=== PATIENT | male | born 1980 | race Two or more races ===

== ENCOUNTER 2016-11-24 07:38 | Inpatient (IN) | payer SELFPAY ==
[~2016-11-24] VITALS: Ht 170.2 cm; Wt 65.1 kg
[2016-11-24] MEDS ORDERED: LORazepam 2 MG/ML, 1ML ONE ×4 (08:21→13:31)
[2016-11-24] MEDS ORDERED: LORazepam 2 MG/ML, 1ML IVPush ONE ×4 (08:30→13:30)
[2016-11-24 08:44] LABS: BLOOD UREA NITROGEN 9 mg/dL (7-18)
[2016-11-24] MEDS ORDERED: POTASSIUM CHLORIDE 20 MEQ TAB.ER.PRT PO ONE (09:30)
[2016-11-24] MEDS ORDERED: POTASSIUM CHLORIDE 20 MEQ TAB.ER.PRT ONE (09:31)
[2016-11-24] MEDS ORDERED: POTASSIUM CHLORIDE 20 MEQ, MAGNESIUM SULFATE 1 GM, THIAMINE 100 MG, FOLIC ACID 1 MG, MV... IV ONE ×2 (11:00→11:30)
[2016-11-24] MEDS ORDERED: LORazepam 10 MG in SODIUM CHLORIDE 0.9% 245 ML IV PRN (13:12)
[2016-11-24] MEDS ORDERED: ONDANSETRON 2MG/ML, 2ML IVPush PRN (14:30)
[2016-11-24] MEDS ORDERED: ACETAMINOPHEN 325 MG TABLET PO PRN (14:30)
[2016-11-24] MEDS ORDERED: DOCUSATE 100 MG CAPSULE PO PRN (14:30)
[2016-11-24] MEDS ORDERED: POLYETHYLENE GLYCOL 17 GM PACKET PO PRN (14:30)
[2016-11-24] MEDS ORDERED: LABETALOL 5MG/ML, 20ML IVPush PRN (14:30)
[2016-11-24] MEDS ORDERED: BISACODYL 10 MG SUPP PR PRN ×2 (14:30→16:30)
[2016-11-24] MEDS ORDERED: LORazepam 10 MG in DEXTROSE 5% 245 ML IV PRN (14:30)
[2016-11-24 15:12] LABS: IS PT STATUS REG ER OR PRE ER? NO
[2016-11-24] MEDS ORDERED: SODIUM PHOSPHATE 20 MMOL in SODIUM CHLORIDE 0.9% 500 ML IV ONE (15:30)
[2016-11-24] MEDS ORDERED: DIAZEPAM 5 MG/ML, 2ML IV SCH (15:30)
[2016-11-24] MEDS ORDERED: THIAMINE 200 MG in SODIUM CHLORIDE 0.9% 50 ML IV ONE (15:30)
[2016-11-24] MEDS ORDERED: MIDAZOLAM 1 MG/ML, 5ML ONE (15:40)
[2016-11-24] MEDS ORDERED: SUCCINYLCHOLINE 20 MG/ML, 10ML ONE (15:40)
[2016-11-24] MEDS ORDERED: VECURONIUM 10 MG ONE (15:40)
[2016-11-24] MEDS ORDERED: LACTULOSE 20 GM/30 ML UDC PO SCH (16:00)
[2016-11-24] MEDS ORDERED: ENOXAPARIN 40 MG/0.4 ML SQ SCH (16:00)
[2016-11-24] MEDS ORDERED: SENNA/DOCUSATE TABLET NG PRN (16:30)
[2016-11-24] MEDS ORDERED: SENNOSIDES 8.8 MG/5 ML ORAL SOL NG PRN (16:30)
[2016-11-24] MEDS ORDERED: PHARMACY MAY ADJ FOR RENAL FX MC SCH (16:30)
[2016-11-24] MEDS ORDERED: LIDOCAINE-MPF 1%, 2ML ENDO PRN (16:30)
[2016-11-24] MEDS ORDERED: LACTULOSE 20 GM/30 ML UDC NG PRN (16:30)
[2016-11-24] MEDS ORDERED: SODIUM CHLORIDE 0.9% IV PRN (16:30)
[2016-11-24] MEDS ORDERED: LORAZEPAM IV PRN (16:30)
[2016-11-24] MEDS: NS + 20MEQ KCL 1,000 ML IV SCH ×2 (16:56→23:29)
[2016-11-24] MEDS ORDERED: POTASSIUM PHOS 4.4 MEQ/ML IV ONE (17:00)
[2016-11-24] MEDS ORDERED: POTASSIUM PHOSPHATE 44 MEQ in SODIUM CHLORIDE 0.9% 500 ML IV ONE (17:00)
[2016-11-24] MEDS: ENOXAPARIN 40 MG/0.4 ML SQ SCH (17:06)
[2016-11-24] MEDS: CHLORDIAZEPOXIDE 25 MG CAPSULE PO SCH ×2 (17:06→19:45)
[2016-11-24] MEDS: FAMOTIDINE 20 MG/2 ML IV SCH (17:06)
[2016-11-24 17:08] LABS: ABG COLLECTION SITE RIGHT RADIAL; COLLATERAL CIRCULATION TESTING NORMAL
[2016-11-24] MEDS: DIAZEPAM 5 MG/ML, 10ML VIAL IV SCH ×2 (17:09→19:07)
[2016-11-24] MEDS: DEXAMETHASONE 4 MG/ML, 1ML IVPush SCH ×2 (17:11→23:29)
[2016-11-24 17:24] LABS: ASPARTATE AMINO TRANSFERASE 169 U/L (15-37); BLOOD UREA NITROGEN 6 mg/dL (7-18)
[2016-11-24] MEDS: FENTANYL PF 100 MCG/2ML IVPush PRN ×4 (18:05→22:58)
[2016-11-24] MEDS: ALBUTEROL/IPRATROPIUM 2.5MG/0.5MG, 3 ML INLINE SCH ×2 (18:25→22:32)
[2016-11-24 19:36] LABS: DAU SCREEN DISCLAIMER
[2016-11-24] MEDS: QUETIAPINE 25MG TABLET PO SCH (19:44)
[2016-11-24] MEDS: DIAZEPAM 5 MG/ML, 10ML VIAL IV PRN ×2 (20:11→21:39)
[2016-11-24] MEDS: LORazepam 20 MG in SODIUM CHLORIDE 0.9% 240 ML IV PRN (22:58)
[2016-11-25] MEDS ORDERED: POTASSIUM PHOSPHATE 44 MEQ in SODIUM CHLORIDE 0.9% 500 ML IV ONE
[2016-11-25] MEDS ORDERED: VECURONIUM 10 MG IVPush ONE
[2016-11-25] MEDS: FENTANYL PF 100 MCG/2ML IVPush PRN ×11 (01:31→21:40)
[2016-11-25] MEDS: DIAZEPAM 5 MG/ML, 10ML VIAL IV SCH ×6 (01:31→21:03)
[2016-11-25] MEDS: ALBUTEROL/IPRATROPIUM 2.5MG/0.5MG, 3 ML INLINE SCH ×4 (02:32→14:00)
[2016-11-25] MEDS: LORazepam 20 MG in SODIUM CHLORIDE 0.9% 240 ML IV PRN ×4 (02:47→16:19)
[2016-11-25] MEDS ORDERED: OMNIPAQUE 350 MG/ML, 50 ML BOTTLE ONE (03:35)
[2016-11-25] MEDS: DIAZEPAM 5 MG/ML, 10ML VIAL IV PRN ×2 (03:43→05:45)
[2016-11-25] MEDS: QUETIAPINE 25MG TABLET PO SCH ×3 (03:45→21:04)
[2016-11-25] MEDS ORDERED: VECURONIUM 10 MG IVPush PRN (04:30)
[2016-11-25 04:35] LABS: ABG COLLECTION SITE RIGHT RADIAL; COLLATERAL CIRCULATION TESTING NORMAL
[2016-11-25 04:56] LABS: ASPARTATE AMINO TRANSFERASE 155 U/L (15-37); BLOOD UREA NITROGEN 3 mg/dL (7-18)
[2016-11-25] MEDS: FAMOTIDINE 20 MG/2 ML IV SCH ×2 (05:12→16:19)
[2016-11-25] MEDS: DEXAMETHASONE 4 MG/ML, 1ML IVPush SCH ×4 (05:13→22:34)
[2016-11-25] MEDS: NS + 20MEQ KCL 1,000 ML IV SCH ×2 (05:49→22:21)
[2016-11-25] MEDS ORDERED: POTASSIUM CHLORIDE 10% 40 MEQ/30 ML UDC PO ONE (07:00)
[2016-11-25] MEDS: CHLORDIAZEPOXIDE 25 MG CAPSULE PO SCH ×3 (08:22→21:03)
[2016-11-25] MEDS ORDERED: POTASSIUM CHLORIDE 20 MEQ, MAGNESIUM SULFATE 2 GM, THIAMINE 100 MG, MVI ADULT 10 ML, FO... IV SCH (10:00)
[2016-11-25] MEDS: POTASSIUM CHLORIDE 20 MEQ, MAGNESIUM SULFATE 2 GM, THIAMINE 100 MG, MVI ADULT 10 ML, FO... IV SCH (14:48)
[2016-11-25] MEDS: ENOXAPARIN 40 MG/0.4 ML SQ SCH (16:19)
[2016-11-25] MEDS ORDERED: ALBUTEROL/IPRATROPIUM 2.5MG/0.5MG, 3 ML INLINE PRN ×2 (16:30→20:00)
[2016-11-26] MEDS: LORazepam 20 MG in SODIUM CHLORIDE 0.9% 240 ML IV PRN (00:44)
[2016-11-26] MEDS: DIAZEPAM 5 MG/ML, 10ML VIAL IV SCH ×2 (01:11→04:34)
[2016-11-26] MEDS: FENTANYL PF 100 MCG/2ML IVPush PRN ×2 (02:49→23:20)
[2016-11-26 04:00] VITALS: BP 143/76
[2016-11-26] MEDS: FAMOTIDINE 20 MG/2 ML IV SCH (04:30)
[2016-11-26] MEDS: QUETIAPINE 25MG TABLET PO SCH ×3 (04:30→18:40)
[2016-11-26 04:34] LABS: ABG COLLECTION SITE RIGHT RADIAL; COLLATERAL CIRCULATION TESTING NORMAL
[2016-11-26] MEDS: DEXAMETHASONE 4 MG/ML, 1ML IVPush SCH (04:36)
[2016-11-26 04:43] LABS: BLOOD UREA NITROGEN 2 mg/dL (7-18)
[2016-11-26] MEDS: NS + 20MEQ KCL 1,000 ML IV SCH ×4 (04:58→22:40)
[2016-11-26] MEDS: CHLORDIAZEPOXIDE 25 MG CAPSULE PO SCH ×3 (08:58→20:34)
[2016-11-26] MEDS ORDERED: DIAZEPAM 5 MG/ML, 10ML VIAL IV SCH ×2 (11:00)
[2016-11-26] MEDS ORDERED: ALBUTEROL/IPRATROPIUM 2.5MG/0.5MG, 3 ML NPPB PRN (11:00)
[2016-11-26] MEDS: POTASSIUM CHLORIDE 20 MEQ, MAGNESIUM SULFATE 2 GM, THIAMINE 100 MG, MVI ADULT 10 ML, FO... IV SCH (12:17)
[2016-11-26] MEDS: DIAZEPAM 5 MG/ML, 10ML VIAL IV PRN ×2 (13:35→19:41)
[2016-11-26] MEDS: ENOXAPARIN 40 MG/0.4 ML SQ SCH (17:07)
[2016-11-26] MEDS ORDERED: BISACODYL 10 MG SUPP PR PRN ×2 (19:30)
[2016-11-26] MEDS ORDERED: ACETAMINOPHEN 325 MG TABLET PO PRN (19:30)
[2016-11-26] MEDS ORDERED: DOCUSATE 100 MG CAPSULE PO PRN (19:30)
[2016-11-26] MEDS: FAMOTIDINE 20 MG TABLET PO SCH (21:14)
[2016-11-27] MEDS: DIAZEPAM 5 MG/ML, 10ML VIAL IV PRN ×2 (03:37→15:00)
[2016-11-27] MEDS: QUETIAPINE 25MG TABLET PO SCH ×3 (03:37→19:42)
[2016-11-27 04:00] VITALS: BP 127/93
[2016-11-27] MEDS: NS + 20MEQ KCL 1,000 ML IV SCH (04:04)
[2016-11-27 04:40] LABS: ABG COLLECTION SITE LEFT RADIAL; COLLATERAL CIRCULATION TESTING NORMAL; FIO2 ROOM AIR %
[2016-11-27 04:55] LABS: BLOOD UREA NITROGEN 2 mg/dL (7-18)
[2016-11-27] MEDS: FENTANYL PF 100 MCG/2ML IVPush PRN ×2 (05:23→06:43)
[2016-11-27] MEDS: FAMOTIDINE 20 MG TABLET PO SCH ×2 (08:39→21:13)
[2016-11-27] MEDS: CHLORDIAZEPOXIDE 25 MG CAPSULE PO SCH ×3 (08:39→21:13)
[2016-11-27 14:37] VITALS: BP 119/79
[2016-11-27] MEDS: POTASSIUM CHLORIDE 20 MEQ, MAGNESIUM SULFATE 2 GM, THIAMINE 100 MG, MVI ADULT 10 ML, FO... IV SCH (16:19)
[2016-11-27] MEDS: ENOXAPARIN 40 MG/0.4 ML SQ SCH (16:19)
[2016-11-27 20:31] VITALS: BP 114/72
[2016-11-28 00:30] VITALS: BP 118/74
[2016-11-28] MEDS: QUETIAPINE 25MG TABLET PO SCH ×3 (03:30→19:56)
[2016-11-28 06:29] LABS: BLOOD UREA NITROGEN 4 mg/dL (7-18)
[2016-11-28 06:30] LABS: ASPARTATE AMINO TRANSFERASE 92 U/L (15-37)
[2016-11-28 08:00] VITALS: BP 108/70
[2016-11-28] MEDS: CHLORDIAZEPOXIDE 25 MG CAPSULE PO SCH ×3 (11:00→17:00)
[2016-11-28] MEDS: FAMOTIDINE 20 MG TABLET PO SCH ×2 (11:08→19:57)
[2016-11-28 12:29] VITALS: BP 92/54
[2016-11-28 13:59] VITALS: BP 120/93
[2016-11-28] MEDS: ENOXAPARIN 40 MG/0.4 ML SQ SCH (16:30)
[2016-11-28] MEDS: POTASSIUM CHLORIDE 20 MEQ, MAGNESIUM SULFATE 2 GM, THIAMINE 100 MG, MVI ADULT 10 ML, FO... IV SCH (18:06)
[2016-11-28] MEDS ORDERED: LORazepam 2 MG/ML, 1ML IV PRN ×5 (18:30)
[2016-11-28 19:28] VITALS: BP 112/67
[2016-11-28] MEDS ORDERED: CHLORDIAZEPOXIDE 25 MG CAPSULE PO SCH (21:00)
[2016-11-29 01:07] VITALS: BP 120/74
[2016-11-29] MEDS: QUETIAPINE 25MG TABLET PO SCH ×3 (03:36→20:17)
[2016-11-29 05:03] LABS: BLOOD UREA NITROGEN 7 mg/dL (7-18)
[2016-11-29 05:52] LABS: DIFF TOTAL CELLS COUNTED 100 CELL DIFF
[2016-11-29 05:56] LABS: VERIFY COUNTS? YES
[2016-11-29 05:57] LABS: ANISOCYTOSIS 1+; POLYCHROMASIA 1+
[2016-11-29] MEDS ORDERED: CHLORDIAZEPOXIDE 25 MG CAPSULE PO SCH (06:00)
[2016-11-29 06:36] VITALS: BP 118/69
[2016-11-29] MEDS: CHLORDIAZEPOXIDE 25 MG CAPSULE PO SCH ×2 (08:48→20:16)
[2016-11-29] MEDS: FAMOTIDINE 20 MG TABLET PO SCH ×2 (08:48→20:16)
[2016-11-29] MEDS: MULTIVITAMINS/MINERALS TABLET PO SCH (08:48)
[2016-11-29] MEDS: FOLIC ACID 1 MG TABLET PO SCH (08:48)
[2016-11-29] MEDS: THIAMINE 100MG TABLET PO SCH (08:48)
[2016-11-29 12:41] VITALS: BP 115/71
[2016-11-29] MEDS ORDERED: ENOXAPARIN 40 MG/0.4 ML SQ SCH (16:00)
[2016-11-29 19:24] VITALS: BP 117/67
[2016-11-30 01:47] VITALS: BP 113/74
[2016-11-30] MEDS: QUETIAPINE 25MG TABLET PO SCH ×2 (03:39→11:30)
[2016-11-30 05:25] LABS: BLOOD UREA NITROGEN 11 mg/dL (7-18)
[2016-11-30 05:44] LABS: DIFF TOTAL CELLS COUNTED 100 CELL DIFF
[2016-11-30 05:47] LABS: ANISOCYTOSIS 1+; POLYCHROMASIA 1+; VERIFY COUNTS? YES
[2016-11-30] MEDS: THIAMINE 100MG TABLET PO SCH (07:47)
[2016-11-30] MEDS: FOLIC ACID 1 MG TABLET PO SCH (07:47)
[2016-11-30] MEDS: FAMOTIDINE 20 MG TABLET PO SCH (07:47)
[2016-11-30] MEDS: MULTIVITAMINS/MINERALS TABLET PO SCH (07:47)
[2016-11-30 07:56] VITALS: BP 103/62
[2016-11-30] MEDS ORDERED: CHLORDIAZEPOXIDE 25 MG CAPSULE PO SCH (12:00)
[2016-11-30 12:48] VITALS: BP 101/62
[2016-11-30] MEDS ORDERED: ENOXAPARIN 40 MG/0.4 ML SQ SCH (16:00)
== END 2016-11-30 17:30 | disposition home or self-care (01) | DRG 208 ==
LOC: ED 09:48 → EDIP 12:43 → CCU 15:06 → 3NE 11-27 10:50
PROVIDERS: ADMIT Internal Medicine; ATTEND Internal Medicine
PROC: 5A1945Z Respiratory Ventilation, 24-96 Consecutive Hours (ICD-10-PCS; principal; 2016-11-24)
PROC: 0BH17EZ Insertion of Endotracheal Airway into Trachea, Via Natural or Artificial Opening (ICD-10-PCS; 2016-11-24)
DX: J96.00 Acute respiratory failure, unspecified whether with hypoxia or hypercapnia (principal); G93.41 Metabolic encephalopathy; F10.239 Alcohol dependence with withdrawal, unspecified; Z99.11 Dependence on respirator [ventilator] status; Y90.0 Blood alcohol level of less than 20 mg/100 ml; D53.9 Nutritional anemia, unspecified; E87.6 Hypokalemia; Z78.1 Physical restraint status; S90.521A Blister (nonthermal), right ankle, initial encounter; X58.XXXA Exposure to other specified factors, initial encounter; Y93.89 Activity, other specified; Y92.89 Other specified places as the place of occurrence of the external cause; Y99.8 Other external cause status; K76.0 Fatty (change of) liver, not elsewhere classified; G31.9 Degenerative disease of nervous system, unspecified
CPT/HCPCS: 36415; 36600; 70450; 71010; 72110; 72220; 74176; 76700; 80048; 80053; 80307; 81003; 82140; 82607; 82746; 82803; 83690; 83735; 84100; 84443; 84478; 84484; 85025; 85610; 87040; 87070; 87081; 87205; 94002; 94003; 94150; 94640; 96374; 96376; J1100; J1650; J2060; J2250; J3010; J3360; J3411; J3475; J3480; J3490; J7042; J7620; Q9967; J0330; J7030; J7040; J7050; S0028